=== PATIENT | female | born 1960 | race Caucasian/White ===

== ENCOUNTER 2017-02-01 12:36 | Emergency (ER) | payer OTHER ==
[~2017-02-01] VITALS: Ht 165.1 cm; Wt 68.0 kg
[~2017-02-01 12:36] MED LIST: CIPRO 500MG TA500 MG PO; PYRIDIUM200 MG PO
--- NOTE | 2017-02-01 14:51 | ED GENERAL ADULT ---
See Addendum History of Present Illness General Chief Complaint: Upper Respiratory Sx/Fever Stated Complaint: URI Source: patient, old records Exam Limitations: no limitations Vital Signs & Intake/Output Vital Signs & Intake/Output Vital Signs Date Time Temp Pulse Resp B/P B/P Pulse O2 O2 Flow FiO2 Mean Ox Delivery Rate 02/01 1516 97.9 80 18 114/72 02/01 1448 Room Air 02/01 1252 96.5 77 16 112/71 98 Room Air Allergies Coded Allergies: NO KNOWN ALLERGIES (05/28/15) Reconcile Medications Doxycycline Hyclate 100 MG TABLET 1 TAB PO BID bronchitis Oxymetazoline HCl (Afrin) 0.05 % SPRAY 1 UNIT CIERRA BID CONGESTION Triage Note: 56 Y/O FEMALE STATING "I HAVE A SINUS INFECTION". REPORTS SYMPTOMS (NASAL CONGESTION) X 1 WEEK. AFEBRILE. PT HAS BEEN TAKING OTC MEDS WITH NO RELIEF. Triage Nurses Notes Reviewed? yes HPI: This is a 56-year-old female with almost 50 pack years of smoking who comes in with a chief complaint of nasal congestion. Note the patient has had previous visits for similar complaints in August 2010 and August 2011. Patient states that she has felt "congested" for the past week or so. She stated that she's been taking [id number] medications including nasal sprays without relief. She states that congestion is associated with a cough with green colored sputum. She denies any fevers, recent travel or sick contacts. She says her symptoms get worse if she leans forward and has found no relieving factors. Denies any headache, nausea, vomiting, shortness of breath, or chest pain. Past History Travel History Traveled to [place] past 21 day No Medical History Any Pertinent Medical History? 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 No Review of Systems Review of Systems Constitutional: Denies: chills, fever, malaise, weakness. EENTM: Denies: blurred vision, visual changes, ear discharge, ear pain, nasal pain. Respiratory: Reports: cough, sputum production. Denies: short of breath. Cardiovascular: Denies: chest pain, orthopena, palpitations. GI: Denies: abdominal pain, constipation, diarrhea, nausea, vomiting. Genitourinary: Reports: no symptoms. Musculoskeletal: Reports: no symptoms. Skin: Reports: no symptoms. Physical Exam Physical Exam General Appearance: well developed/nourished, no apparent distress, alert, awake Head: atraumatic, normal appearance Eyes: Bilateral: normal appearance, PERRL, EOMI. Ears, Nose, Throat: normal pharynx, normal ENT inspection Neck: normal inspection, supple, full range of motion Respiratory: normal breath sounds, chest non-tender, no respiratory distress, quiet respiration, Slight crackles on pulm exam Cardiovascular: regular rate/rhythm Core Measures ACS in differential dx? No CVA/TIA Diagnosis: No Severe Sepsis Present: No Septic Shock Present: No Progress Differential Diagnoses I considered the following diagnoses in my evaluation of the patient: [Sinusitis , pharyngitis, pneumonia,] Plan of Care: Pt will follow up outpatient with PCP and finish her antibiotic regimen Initial ED EKG: none Departure Departure Disposition: HOME OR SELF CARE Condition: Stable Clinical Impression Primary Impression: Sinusitis Qualifiers: Sinusitis location: maxillary Chronicity: acute Recurrence: non- recurrent Qualified Code: J01.00 - Acute maxillary sinusitis, unspecified Referrals: PATIENT HAS NO PRIMARY CARE DR (PCP/Family) Additional Instructions: 1. It is very important to establish contact with a primary care physician so that you can get follow-up care. 2. Is very important to stop smoking. Given your age and risk factors, you will likely require annual low-dose CT to evaluate and rule out possibility of lung cancer. This is done with a primary care physician on the outpatient basis. 3. If yoursymptoms worsen including fever, chest pain, shortness of breath and return immediately to the ED Departure Forms: Customer Survey General Discharge Information Prescriptions: Current Visit Scripts Doxycycline Hyclate 1 TAB PO BID #20 TAB Oxymetazoline HCl (Afrin) 1 UNIT CIERRA BID 3 Days Critical Care Note Critical Care Note Critical Care Time: non-applicable
[2017-02-01] MEDS ORDERED: DOXYCYCLINE HY100 M4 PO (15:02)
[2017-02-01] MEDS ORDERED: AFRIN30 ML NAS (15:02)
[2017-02-01 15:16] VITALS: BP 114/72
== END 2017-02-01 15:16 ==
LOC: ERH 12:36
DX: J32.9 Chronic sinusitis, unspecified (principal); Z72.0 Tobacco use